=== PATIENT | male | born 1945 | race Asian ===

== ENCOUNTER 2017-06-13 13:35 | Inpatient (IN) | payer BC, MEDICAID ==
[~2017-06-13] VITALS: Ht 172.7 cm; Wt 76.7 kg
[2017-06-13] MEDS ORDERED: Ipratropium 0.02% Inh Soln 2.5ml UD HHN ONE (14:00)
[2017-06-13] MEDS ORDERED: Albuterol ud Inhalation HHN ONE (14:00)
[2017-06-13 14:55] VITALS: BP 114/63
--- NOTE | 2017-06-13 15:14 | Diagnostic Imaging Report ---
Indication: Cough Technique: One view of the chest Comparison: none Findings: There is diffuse opacification of the left hemithorax with airspace and interstitial opacities. There is some interstitial disease of the right lung base as well. There may be a small amount of pleural fluid bilaterally. The heart size is upper limits of normal Impression: Diffuse interstitial and airspace disease in the left lung, may reflect infiltrate or edema. Right basilar interstitial infiltrate versus edema Suspect small bilateral pleural effusions
[2017-06-13] MEDS ORDERED: Oseltamivir 75mg cap ORAL ONE (15:15)
[2017-06-13] MEDS ORDERED: Solu-MEDROL 125mg Inj IVP ONE (15:15)
[2017-06-13] MEDS: Albuterol ud Inhalation HHN SCH ×4 (15:19→19:32)
[2017-06-13] MEDS: Ipratropium 0.02% Inh Soln 2.5ml UD HHN SCH ×3 (15:19→15:46)
[2017-06-13] MEDS ORDERED: cefTRIAXone 1 GM in NS 55 ML IVPB ONE (15:30)
[2017-06-13] MEDS ORDERED: Azithromycin 500 MG in D5W 275 ML IVPB ONE (15:30)
[2017-06-13] MEDS ORDERED: Azithromycin 500mg Inj IV ONE (15:43)
[2017-06-13 15:56] LABS: HEMATOCRIT 34.9 % (42.0-52.0); HEMOGLOBIN 11.2 G/DL (14.2-18.0); MEAN CORPUSCULAR VOLUME 86 FL (80-99); PLATELET COUNT 277 K/UL (150-450); RED BLOOD COUNT 4.08 M/UL (4.70-6.10); RED CELL DISTRIBUTION WIDTH 12.8 % (11.6-14.8)
[2017-06-13 16:13] LABS: WHITE BLOOD COUNT 22.5 K/UL (4.8-10.8)
--- NOTE | 2017-06-13 16:22 | Diagnostic Imaging Report ---
Clinical Indication: Cough, abnormal chest x-ray Technique: Spiral acquisitions obtained through the chest. No IV contrast utilized, reason not stated. Multiplanar reconstructions generated. Total dose length product 761 mGycm. CTDIvol(s) point mGy. Dose reduction achieved using automated exposure control Comparison: Reference made to chest radiograph earlier the same day Findings: There is dense opacification of most of the left lower lobe. Material is seen filling and occluding or nearly occluding the left main stem bronchus and lobar bronchi. A few small cystic spaces are seen within the opacified left lower lobe. There are some calcifications within this. The aerated portions of the left lower lobe surrounded what appear to be a spiculated 3 cm masslike lesion which is immediately adjacent to and anterior to the larger area of consolidation. The residual aerated lower lobe also demonstrates considerable reticular interstitial opacity as well as patchy confluent opacities. The inferior aspect of the left upper lobe demonstrates opacification similar to that seen in the lower lobe the aerated portions of the lower lobe demonstrate reticulated opacities. Areas of confluent opacity are seen throughout much of the main left upper lobe, and an ill-defined spiculated opacity is seen in the left lung apex measuring 2.2 cm in diameter. Extensive unusual calcifications are seen surrounding the distal trachea and the proximal mainstem bronchi bilaterally. Similar calcifications are seen in the adjacent nodes as well as within the opacified parenchyma inferiorly. There are small nodules within the pleural space or extrapleural fat as well, measuring up to 1 cm diameter. There is suggestion of trace pleural fluid at the lung bases, most apparent on the coronal reconstructed images. There are also pleural calcifications at the left lung base On the right, there is mild hyperinflation of the upper and middle lobes, which are otherwise clear extensive reticular opacity is seen within much of the right lower the right lobe. There is considerable right lower lobe volume loss with confluent linear opacities at the lung base. There is fairly massive right hilar lymphadenopathy. The extent of the nodes is difficult to delineate as in the absence of IV contrast and cannot be distinguished from the adjacent vessels. The bronchi are patent on the right. The trachea is patent. No pleural fluid is demonstrated on either side. The aerated portions of the right lung are hyperinflated The main pulmonary artery is dilated, measuring 4.4 cm in diameter. There is mediastinal lymphadenopathy, in addition to the hilar adenopathy. There is also fairly extensive retrocrural adenopathy, with nodes measuring up to 3 cm long axis dimension. Aortopulmonary window and prevascular space nodes measure up to 2 cm in diameter and demonstrate loss of normal architecture. Nodes are also seen within the pericardial fat and adjacent to the distal esophagus. The esophagus is dilated with air proximally and demonstrates wall thickening proximally. The included thyroid is unremarkable. No axillary or chest wall mass or adenopathy. The heart size is normal. There is minimal pericardial thickening but no rachael pericardial effusion. The bones are unremarkable The included upper abdominal anatomy is remarkable for the presence of a right upper pole renal calyceal calculus. The adrenals are unremarkable. Impression: Dense opacification of most of the left lower lobe and much of the left upper lobe. Suspect that this mostly represent neoplasm, although it is also possible that there is central neoplasm and peripheral postobstructive pneumonia and/or atelectasis. Spiculated opacities in the anterior left lower lobe and superior left upper lobe may reflect synchronous neoplastic lesions or could just be lobulated extensions of the primary mass. Material filling the left lung proximal bronchi, likely debris and/or tumor. Given the extensive surrounding calcifications which are probably tumoral calcifications, suspect predominantly the latter Other confluent opacities within the left lung may reflect areas of neoplasm, fibrosis, or acute consolidation. Diffuse interstitial disease within the aerated portions of the left lung and within the right lower lobe probably represent chronic fibrotic changes, but acute interstitial disease is also a possibility. Right hilar, mediastinal, epicardial, and retrocrural lymphadenopathy. Suspect these represent metastatic lymphadenopathy. Small nodules within the left pleural space or extrapleural fat. Suspect likewise represent metastatic lesion Hyperinflated right lung, consistent with COPD Trace left pleural fluid Dilated main pulmonary artery, consistent with pulmonary arterial hypertension Dilated proximal esophagus with mild wall thickening, significance uncertain. Extrinsic compression or invasion by tumor at the level of the stacey a possibility. Correlate with clinical symptoms. Incidental finding of nonobstructive right upper pole renal calyceal calculus The CT scanner at [facility] is accredited by the [employer] and the scans are performed using protocols designed to limit radiation exposure to as low as reasonably achievable to attain images of sufficient resolution adequate for diagnostic evaluation.
[2017-06-13 16:23] LABS: ANION GAP 9 mmol/L (5-15); BLOOD UREA NITROGEN 25 mg/dL (7-18); CALCIUM 8.3 MG/DL (8.5-10.1); CARBON DIOXIDE 26 MMOL/L (21-32); CHLORIDE 89 MMOL/L (98-107); CREATININE 1.4 MG/DL (0.55-1.30); POTASSIUM 3.9 MMOL/L (3.5-5.1); SODIUM 124 MMOL/L (136-145)
[2017-06-13 16:34] LABS: ALANINE AMINOTRANSFERASE 29 U/L (12-78); ALBUMIN 2.3 G/DL (3.4-5.0); ALBUMIN/GLOBULIN RATIO 0.4 (1.0-2.7); ALKALINE PHOSPHATASE 141 U/L (46-116); ASPARTATE AMINO TRANSFERASE 23 U/L (15-37); BILIRUBIN,TOTAL 1.2 MG/DL (0.2-1.0)
[2017-06-13 16:36] LABS: BILIRUBIN,DIRECT 0.7 MG/DL (0.0-0.3)
[2017-06-13 17:08] VITALS: BP 110/67
[2017-06-13] MEDS ORDERED: SYMBICORT2 PUFF1 INH (18:04)
[2017-06-13] MEDS ORDERED: ALBUTEROL2.5 MG/3 M INH (18:24)
[2017-06-13] MEDS ORDERED: LOSARTAN-HCTZ1 EACH ORAL (18:24)
[2017-06-13] MEDS ORDERED: SPIRIVA18 MCG INH (18:24)
--- NOTE | 2017-06-13 18:35 | Emergency Room Report ---
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 Complaining of 34 days of fever chills cough myalgias. Shortness of breath. Patient has nebulizer at home has been using it first 3 times a day. Allergies: Coded Allergies: NO KNOWN DRUG ALLERGIES (Verified Allergy, Unknown, 06/13/17) Pt's confirmed that pt is not allergic to amlodipine Patient History Past Medical History: see triage record Past Surgical History: none Pertinent Family History: none Reviewed Nursing Documentation: PMH: Agreed, PSxH: Agreed Nursing Documentation-PMH Past Medical History: No History, Except For Hx Asthma: Yes Review of Systems All Other Systems: negative except mentioned in HPI Physical Exam Vital Signs Date Time Temp Pulse Resp B/P (MAP) Pulse Ox O2 Delivery O2 Flow Rate FiO2 06/13/17 13:25 112 20 108/72 99 Simple Mask 10.0 06/13/17 14:13 21 06/13/17 14:55 97.6 Sp02 EP Interpretation: reviewed, normal General Appearance: alert, GCS 15, non-toxic, moderate distress Head: normocephalic, atraumatic Eyes: bilateral eye normal inspection, bilateral eye PERRL, bilateral eye EOMI ENT: normal ENT inspection, normal pharynx, normal voice, moist mucus membranes Neck: normal inspection, full range of motion, supple Respiratory: other - dec b/s L lung base, R sided exp wheezing Cardiovascular #1: tachycardia Cardiovascular #2: 2+ radial (R), 2+ radial (L) Gastrointestinal: normal inspection, non tender, soft, non-distended, no guarding Genitourinary: no CVA tenderness Musculoskeletal: normal inspection, back normal, normal range of motion, non- tender Neurologic: normal inspection, alert, oriented x3, responsive, motor strength/ tone normal, sensory intact, normal gait, speech normal Psychiatric: normal inspection, judgement/insight normal, memory normal Skin: normal inspection, normal color, no rash, warm/dry, well hydrated, normal turgor Procedures Critical Care Time Critical Care Time 40 minutes of CC time 71-year-old male, shortness of breath VS: hypoxic, tachypneic, tachycardic PLAN: IV access, labs, lactate, nebulizers, steroids, antibiotics, BiPAP Anticipate admission to [facility] CC time also includes review of labs, review of EMR, discussion with family and paperwork from SNF, d/w hospitalist CC could include dosing of pressors, additional Abx CC time does not include procedures Medical Decision Making Diagnostic Impression: Primary Impression: Respiratory failure Additional Impressions: Lung fibrosis Pneumonia Severe sepsis ER Course 71-year-old male, shortness of breath DDX: Flulike illness, pneumonia, pleural effusion, progressive worsening of chronic left lung disease Plan: Obtain labs, ua, EKG, CXR Antibiotics, fluids, consider BiPAP ER course: Patient was treated with nebulizer, Solu-Medrol, fluids On x-ray likely with bilateral pneumonia, showed white out of the left lung Treated with ceftriaxone and azithromycin Continues to be short of breath, started on BiPAP at 6:30 PM Sepsis Re-examination Time: 8:30 PM VS: Temp 98 HR 100 BP 118/57 RR 19 CVS: RRR Respiratory: Decreased breath sounds left lung Peripheral pulses: 2+ radial Capillary refill: <2 seconds Skin exam: warm, dry, no rash, not mottled Disposition: Patient is to be admitted to [facility]/W hospitalist Dr. Santiago who has accepted pt for admission Please note that this Emergency Department Report was dictated using [employer] mechanic spacecraft technology software, occasionally this can lead to erroneous entry secondary to interpretation by the dictation equipment. EKG Diagnostic Results EP Interpretation: Yes Rate: normal Rhythm: NSR ST Segments: T wave inversions noted in V2 V3. Right bundle branch block ASA given to patient: No Rhythm Strip EP Interpretation: Yes Rate: 100 Rhythm: NSR, no PVCs, no ectopy Chest X-ray CXR: Ordered: Yes 1 view Indication sob EP interpretation: Yes Findings: There is diffuse opacification of the left hemithorax with airspace and interstitial opacities. There is some interstitial disease of the right lung base as well. There may be a small amount of pleural fluid bilaterally. The heart size is upper limits of normal Impression: Diffuse interstitial and airspace disease in the left lung, may reflect infiltrate or edema. Right basilar interstitial infiltrate versus edema Suspect small bilateral pleural effusions Electronically signed by Tracie Paz MD Laboratory Tests Test 06/13/17 15:20 White Blood Count 22.5 K/UL (4.8-10.8) *H Red Blood Count 4.08 M/UL (4.70-6.10) L Hemoglobin 11.2 G/DL (14.2-18.0) L Hematocrit 34.9 % (42.0-52.0) L Mean Corpuscular Volume 86 FL (80-99) Mean Corpuscular Hemoglobin 27.4 PG (27.0-31.0) Mean Corpuscular Hemoglobin Concent 32.0 G/DL (32.0-36.0) Red Cell Distribution Width 12.8 % (11.6-14.8) Platelet Count 277 K/UL (150-450) Mean Platelet Volume 6.0 FL (6.5-10.1) L Neutrophils (%) (Auto) % (45.0-75.0) Lymphocytes (%) (Auto) % (20.0-45.0) Monocytes (%) (Auto) % (1.0-10.0) Eosinophils (%) (Auto) % (0.0-3.0) Basophils (%) (Auto) % (0.0-2.0) Differential Total Cells Counted 100 Neutrophils % (Manual) 87 % (45-75) H Lymphocytes % (Manual) 6 % (20-45) L Monocytes % (Manual) 3 % (1-10) Eosinophils % (Manual) 0 % (0-3) Basophils % (Manual) 0 % (0-2) Band Neutrophils 4 % (0-8) Platelet Estimate Adequate Platelet Morphology Normal Red Blood Cell Morphology Normal Sodium Level 124 MMOL/L (136-145) L Potassium Level 3.9 MMOL/L (3.5-5.1) Chloride Level 89 MMOL/L (98-107) L Carbon Dioxide Level 26 MMOL/L (21-32) Anion Gap 9 mmol/L (5-15) Blood Urea Nitrogen 25 mg/dL (7-18) H Creatinine 1.4 MG/DL (0.55-1.30) H Estimate Glomerular Filtration Rate mL/min (>60) Glucose Level 221 MG/DL (74-106) H Calcium Level 8.3 MG/DL (8.5-10.1) L Total Bilirubin 1.2 MG/DL (0.2-1.0) H Direct Bilirubin 0.7 MG/DL (0.0-0.3) H Aspartate Amino Transferase (AST) 23 U/L (15-37) Alanine Aminotransferase (ALT) 29 U/L (12-78) Alkaline Phosphatase 141 U/L (46-116) H Troponin I 0.005 ng/mL (0.000-0.056) Pro-B-Type Natriuretic Peptide 939 pg/mL (0-125) H Total Protein 8.5 G/DL (6.4-8.2) H Albumin 2.3 G/DL (3.4-5.0) L Globulin 6.2 g/dL Albumin/Globulin Ratio 0.4 (1.0-2.7) L Microbiology Date/Time Source Procedure Growth Status 06/13/17 14:45 Nasal Nares Influenza Types A,B Antigen (KELLY) - Final Complete CT/MRI/US Diagnostic Results CT/MRI/US Diagnostic Results : Imaging Test Ordered: CT Chest Impression Findings: There is dense opacification of most of the left lower lobe. Material is seen filling and occluding or nearly occluding the left main stem bronchus and lobar bronchi. A few small cystic spaces are seen within the opacified left lower lobe. There are some calcifications within this. The aerated portions of the left lower lobe surrounded what appear to be a spiculated 3 cm masslike lesion which is immediately adjacent to and anterior to the larger area of consolidation. The residual aerated lower lobe also demonstrates considerable reticular interstitial opacity as well as patchy confluent opacities. The inferior aspect of the left upper lobe demonstrates opacification similar to that seen in the lower lobe the aerated portions of the lower lobe demonstrate reticulated opacities. Areas of confluent opacity are seen throughout much of the main left upper lobe, and an ill-defined spiculated opacity is seen in the left lung apex measuring 2.2 cm in diameter. Extensive unusual calcifications are seen surrounding the distal trachea and the proximal mainstem bronchi bilaterally. Similar calcifications are seen in the adjacent nodes as well as within the opacified parenchyma inferiorly. There are small nodules within the pleural space or extrapleural fat as well, measuring up to 1 cm diameter. There is suggestion of trace pleural fluid at the lung bases, most apparent on the coronal reconstructed images. There are also pleural calcifications at the left lung base On the right, there is mild hyperinflation of the upper and middle lobes, which are otherwise clear extensive reticular opacity is seen within much of the right lower the right lobe. There is considerable right lower lobe volume loss with confluent linear opacities at the lung base. There is fairly massive right hilar lymphadenopathy. The extent of the nodes is difficult to delineate as in the absence of IV contrast and cannot be distinguished from the adjacent vessels. The bronchi are patent on the right. The trachea is patent. No pleural fluid is demonstrated on either side. The aerated portions of the right lung are hyperinflated The main pulmonary artery is dilated, measuring 4.4 cm in diameter. There is mediastinal lymphadenopathy, in addition to the hilar adenopathy. There is also fairly extensive retrocrural adenopathy, with nodes measuring up to 3 cm long axis dimension. Aortopulmonary window and prevascular space nodes measure up to 2 cm in diameter and demonstrate loss of normal architecture. Nodes are also seen within the pericardial fat and adjacent to the distal esophagus. The esophagus is dilated with air proximally and demonstrates wall thickening proximally. The included thyroid is unremarkable. No axillary or chest wall mass or adenopathy. The heart size is normal. There is minimal pericardial thickening but no rachael pericardial effusion. The bones are unremarkable The included upper abdominal anatomy is remarkable for the presence of a right upper pole renal calyceal calculus. The adrenals are unremarkable. Impression: Dense opacification of most of the left lower lobe and much of the left upper lobe. Suspect that this mostly represent neoplasm, although it is also possible that there is central neoplasm and peripheral postobstructive pneumonia and/or atelectasis. Spiculated opacities in the anterior left lower lobe and superior left upper lobe may reflect synchronous neoplastic lesions or could just be lobulated extensions of the primary mass. Material filling the left lung proximal bronchi, likely debris and/or tumor. Given the extensive surrounding calcifications which are probably tumoral calcifications, suspect predominantly the latter Other confluent opacities within the left lung may reflect areas of neoplasm, fibrosis, or acute consolidation. Diffuse interstitial disease within the aerated portions of the left lung and within the right lower lobe probably represent chronic fibrotic changes, but acute interstitial disease is also a possibility. Right hilar, mediastinal, epicardial, and retrocrural lymphadenopathy. Suspect these represent metastatic lymphadenopathy. Small nodules within the left pleural space or extrapleural fat. Suspect likewise represent metastatic lesion Hyperinflated right lung, consistent with COPD Trace left pleural fluid Dilated main pulmonary artery, consistent with pulmonary arterial hypertension Dilated proximal esophagus with mild wall thickening, significance uncertain. Extrinsic compression or invasion by tumor at the level of the stacey a possibility. Correlate with clinical symptoms. Incidental finding of nonobstructive right upper pole renal calyceal calculus Last Vital Signs Date Time Temp Pulse Resp B/P (MAP) Pulse Ox O2 Delivery O2 Flow Rate FiO2 06/13/17 17:08 97.6 103 24 110/67 99 Nasal Cannula 4.0 06/13/17 15:49 28 Disposition: ADMITTED INPATIENT Condition: Critical Referrals: NON PHYSICIAN (PCP) Tracie Paz M.D. Jun 13, 2017 18:35
[2017-06-13 18:45] VITALS: BP 110/67
--- NOTE | 2017-06-13 19:03 | Consultation ---
Consult Note Assessment/Plan dict resp failure pulm fibrosis w fibrothorax HTN heart dis thanks TRISTIN OSBORN Jun 13, 2017 19:03
[2017-06-13 19:30] VITALS: BP 120/59
[2017-06-13 20:11] LABS: APPEARANCE,URINE CLEAR; BILIRUBIN, URINE NEGATIVE (NEGATIVE); COLOR,URINE YELLOW; GLUCOSE, URINE (UA) 3+ (NEGATIVE); KETONES,URINE NEGATIVE (NEGATIVE); LEUKOCYTE ESTERASE ,URINE NEGATIVE (NEGATIVE); NITRITE,URINE NEGATIVE (NEGATIVE); PH,URINE 5 (4.5-8.0); PROTEIN,URINE 1+ (NEGATIVE); UROBILINOGEN,URINE 1 MG/DL (0.0-1.0)
[2017-06-13 21:40] VITALS: BP 113/60
[2017-06-13] MEDS: NovoLOG Insulin Flexpen SUBQ SCH (23:13)
[2017-06-13] MEDS: Solu-MEDROL 40mg Inj IVP SCH (23:13)
[2017-06-14] MEDS: Albuterol/Ipratropium 3ml neb HHN SCH ×7 (00:10→23:41)
--- NOTE | 2017-06-14 02:45 | Consultation ---
DATE OF CONSULTATION: 06/13/2016 PULMONARY CONSULTATION CHIEF COMPLAINT: Short of breath. HISTORY OF PRESENT ILLNESS: This is a 71-year-old man, who has about one week of shortness of breath and low-grade fever. He has been using his inhalers and not improving. He went to urgent care today and was given Solu-Medrol and oxygen and was transported to the emergency department of the emergency medical services. The patient is in respiratory distress and can provide little additional history. In addition, there is a language barrier. The is at the bedside, but also speaks little Divehi. Records from [facility] reviewed. PAST MEDICAL HISTORY: The patient has an extensive pulmonary history with tuberculosis, bronchiectasis, and fibrosis. He has been treated in the past for tuberculosis and has difficulty with stenosis of the left main bronchus. He has had numerous bronchoscopies and stent placements and has chronic lung disease as a result. He has essential tremor, hypertension, mediastinal fibrosis, past left thoracotomy, hypertension I think as diastolic dysfunction, left ventricular hypertrophy, positive LUIS, diabetes, and right bundle branch block. PAST SURGICAL HISTORY: Includes esophageal dilatation, appendectomy, multiple bronchoscopies with stent placement, and past thoracotomy. MEDICATIONS: Robitussin, Spiriva, Symbicort, Tessalon, Proventil by nebulizer, Flonase, vitamin D, losartan, hydrochlorothiazide, and cyclosporine eye drops. ALLERGIES: Amlodipine. REVIEW OF SYSTEMS: Cannot be obtained. PHYSICAL EXAMINATION: VITAL SIGNS: Show he is tachycardic between 103 and 130, blood pressure is normal, temperature is normal, respirations 24 on BiPAP, and saturation is 99% on supplemental oxygen. The patient is in some respiratory distress. SKIN: Warm and dry. HEENT: The head is normocephalic. NECK: No jugular venous distention. The trachea is deviated to the left. CHEST: Scattered rhonchi. CARDIAC: Rhythm is regular. Tachycardia. ABDOMEN: Soft and nontender. EXTREMITIES: There is clubbing. There is no cyanosis or edema. LABORATORY AND DIAGNOSTIC DATA: Chest x-ray and CT scan of the chest are reviewed. There is extensive fibrosis to the left chest and fibrothorax. IMPRESSION: 1. Acute respiratory failure. Blood gas is pending. 2. Possible pneumonia. 3. 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 4. Hypertension with hypertensive heart disease. PLAN: The patient will be admitted and continued on BiPAP. We will give respiratory treatments, steroids, and antibiotics. José Luis Payton M.D. DR: Jaskaran JOB#: [id number] CC: Wyatt Santiago M.D.; Fax#: [phone]
[2017-06-14 04:00] VITALS: BP 117/60
[2017-06-14] MEDS: NovoLOG Insulin Flexpen SUBQ SCH ×4 (05:51→20:58)
[2017-06-14] MEDS: Solu-MEDROL 40mg Inj IVP SCH ×3 (05:52→22:05)
[2017-06-14 08:00] VITALS: BP 116/65
[2017-06-14 12:00] VITALS: BP 113/67
--- NOTE | 2017-06-14 14:31 | Pulmonology Progress Note ---
Assessment/Plan Assessment/Plan IMPRESSION: 1. Acute respiratory failure. ABG better 2. Possible pneumonia. 3. 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 4. Hypertension with hypertensive heart disease. PLAN: The patient will be continued on BiPAP. continue respiratory treatments, steroids, and antibiotics. Subjective Interval Events: patient seen. Discussed with RN. Is off BIPAP today Constitutional: Reports: no symptoms HEENT: Repors: no symptoms Respiratory: Reports: no symptoms Cardiovascular: Reports: no symptoms Gastrointestinal/Abdominal: Reports: no symptoms Genitourinary: Reports: no symptoms Allergies: Coded Allergies: LACTOSE (Verified Allergy, Mild, 06/14/17) AMLODIPINE (Verified Allergy, Unknown, 06/14/17) Objective Last 24 Hour Vital Signs Date Time Temp Pulse Resp B/P (MAP) Pulse Ox O2 Delivery O2 Flow Rate FiO2 06/14/17 12:47 36 06/14/17 12:47 94 20 99 Nasal Cannula 4.0 36 06/14/17 12:37 85 21 96 Nasal Cannula 4.0 36 06/14/17 12:00 97.0 90 20 113/67 98 Nasal Cannula 4.0 06/14/17 08:00 97.5 89 18 116/65 99 Nasal Cannula 4.0 06/14/17 07:49 95 22 99 Nasal Cannula 4.0 36 06/14/17 07:49 36 06/14/17 07:48 92 06/14/17 07:43 86 21 99 Nasal Cannula 4.0 36 06/14/17 07:43 86 21 Nasal Cannula 4.0 36 06/14/17 04:00 97.5 90 20 117/60 98 Bi-pap 06/14/17 01:59 4.0 06/14/17 00:00 94 06/13/17 22:29 97.6 95 22 113/60 99 Bi-pap 4.0 28 06/13/17 21:40 95 22 113/60 99 Bi-pap 06/13/17 21:20 100 22 99 Facial 40 06/13/17 19:30 110 24 120/59 99 Bi-pap 06/13/17 18:45 104 22 110/67 96 Bi-pap 06/13/17 18:30 92 22 98 Bi-pap 40 06/13/17 18:30 88 21 Bi-pap 40 06/13/17 18:30 40 06/13/17 18:30 88 25 99 Facial 40 06/13/17 18:30 88 21 98 Bi-pap 40 06/13/17 17:08 97.6 103 24 110/67 99 Nasal Cannula 4.0 06/13/17 16:02 110 25 98 Nasal Cannula 2.0 06/13/17 15:49 28 06/13/17 15:48 104 21 98 Nasal Cannula 2.0 06/13/17 15:47 104 21 98 Room Air 21 06/13/17 15:35 21 06/13/17 15:34 130 23 99 Nasal Cannula 2.0 06/13/17 15:34 103 23 99 Room Air 21 06/13/17 15:23 21 06/13/17 15:19 106 18 96 Nasal Cannula 2.0 06/13/17 14:55 97.6 108 22 114/63 99 Room Air 10.0 21 General Appearance: no acute distress HEENT: normocephalic Respiratory/Chest: chest wall non-tender, lungs clear Cardiovascular: normal peripheral pulses, normal rate Microbiology Date/Time Source Procedure Growth Status 06/13/17 14:45 Nasal Nares Influenza Types A,B Antigen (KELLY) - Final Complete Laboratory Tests 06/13/17 15:20: White Blood Count 22.5*H, Red Blood Count 4.08L, Hemoglobin 11.2L, Hematocrit 34.9L, Mean Corpuscular Volume 86, Mean Corpuscular Hemoglobin 27.4, Mean Corpuscular Hemoglobin Concent 32.0, Red Cell Distribution Width 12.8, Platelet Count 277, Mean Platelet Volume 6.0L, Neutrophils (%) (Auto) , Lymphocytes (%) ( Auto) , Monocytes (%) (Auto) , Eosinophils (%) (Auto) , Basophils (%) (Auto) , Differential Total Cells Counted 100, Neutrophils % (Manual) 87H, Lymphocytes % (Manual) 6L, Monocytes % (Manual) 3, Eosinophils % (Manual) 0, Basophils % ( Manual) 0, Band Neutrophils 4, Platelet Estimate Adequate, Platelet Morphology Normal, Red Blood Cell Morphology Normal, Sodium Level 124L, Potassium Level 3.9 , Chloride Level 89L, Carbon Dioxide Level 26, Anion Gap 9, Blood Urea Nitrogen 25H, Creatinine 1.4H, Estimat Glomerular Filtration Rate , Glucose Level 221H, Calcium Level 8.3L, Total Bilirubin 1.2H, Direct Bilirubin 0.7H, Aspartate Amino Transf (AST/SGOT) 23, Alanine Aminotransferase (ALT/SGPT) 29, Alkaline Phosphatase 141H, Troponin I 0.005, Pro-B-Type Natriuretic Peptide 939H, Total Protein 8.5H, Albumin 2.3L, Globulin 6.2, Albumin/Globulin Ratio 0.4L 06/13/17 18:35: Arterial Blood pH 7.456H, Arterial Blood Partial Pressure CO2 35.7, Arterial Blood Partial Pressure O2 204.1H, Arterial Blood HCO3 24.6, Arterial Blood Oxygen Saturation 99.1H, Arterial Blood Base Excess 1.0, Dmitriy Test Positive 06/13/17 19:35: Urine Color Yellow, Urine Appearance Clear, Urine pH 5, Urine Specific [place] 1.015, Urine Protein 1+H, Urine Glucose (UA) 3+H, Urine Ketones Negative, Urine Occult Blood 2+H, Urine Nitrite Negative, Urine Bilirubin Negative, Urine Urobilinogen 1H, Urine Leukocyte Esterase Negative, Urine RBC 0-2H, Urine WBC 0- 2, Urine Squamous Epithelial Cells None, Urine Bacteria Few, Lactic Acid Level 4.80H Current Medications Medications (Trade) Dose Ordered Sig/Octavia Route PRN Reason Start Time Stop Time Status Last Admin Dose Admin Albuterol/ Ipratropium (Albuterol/ Ipratropium) 3 ml Q4HRT HHN 06/13/17 23:00 06/18/17 22:59 06/14/17 12:37 Dextrose (Dextrose 50%) STAT PRN IV Hypoglycemia 06/13/17 19:15 07/13/17 19:14 Insulin Aspart (NovoLOG) BEFORE MEALS AND HS SUBQ 06/13/17 21:00 07/13/17 20:59 06/14/17 12:42 Methylprednisolone Sodium Succinate (Solu-MEDROL) 40 mg EVERY 8 HOURS IVP 06/13/17 22:00 07/13/17 21:59 06/14/17 14:14 Nicolás Loza MD Jun 14, 2017 14:31
[2017-06-14 16:00] VITALS: BP 112/65
--- NOTE | 2017-06-14 17:30 | History and Physical Report ---
DATE OF ADMISSION: 06/13/2017 CHIEF COMPLAINT AND REASON FOR HOSPITALIZATION: The patient admitted with cough, weakness, and wheezing. HISTORY OF PRESENT ILLNESS: The patient is a 71-year-old man with a long history of lung disease and prior hospitalizations at [facility]. He has had tuberculosis more than 30 years ago, bronchiectasis, pulmonary fibrosis. He has had stenosis of the left mainstem bronchus and multiple bronchoscopies and stent placements. The patient presents with increasing cough and shortness of breath. No fever. He has been using a nebulizer at home. PAST MEDICAL HISTORY: The patient has prior medical problems including hypertension, mediastinal fibrosis, diastolic dysfunction, left ventricular hypertrophy, positive LUIS, diabetes, right bundle-branch block, history of esophageal dilation. PAST SURGICAL HISTORY: Include appendectomy, esophageal dilation, bronchoscopies , prior thoracotomy. MEDICATIONS: Prior to admission medications include albuterol inhalation, Symbicort, losartan HCT, Spiriva, Robitussin, Tessalon, Proventil inhaler, Flonase, vitamin D, cyclosporine eye drops. ALLERGIES: AMLODIPINE. SYSTEM REVIEW: HEAD EYES, EARS, NOSE, AND THROAT: Vision and hearing good. ENDOCRINE: History of diabetes. No known thyroid disease. PULMONARY: See history of present illness. CARDIAC: No angina or LA. See history of present illness. GASTROINTESTINAL: No ulcers or GI bleeding. No recent nausea, vomiting, or diarrhea. GENITOURINARY: No dysuria, hematuria, urinary hesitancy. NEUROLOGIC: No CVA, syncope, or seizures. MUSCULOSKELETAL: No history of deforming arthritis. PHYSICAL EXAMINATION: GENERAL: The patient is lying in bed, looking acutely ill but not severe distress. VITAL SIGNS: Temperature is 97 degrees, pulse 90, respirations 20, and blood pressure 113/67, pulse oximetry is 98% on four liters. HEAD EYES, EARS, NOSE: Sclerae are nonicteric. Ocular motions intact in all directions. Oral mucosa moist. NECK: No adenopathy. LUNGS: Bilateral rhonchi and wheezing. He has a harsh cough. HEART: Rhythm is regular. I hear no murmur. ABDOMEN: Soft without organomegaly or masses. EXTREMITIES: No edema, cyanosis, or clubbing. NEUROLOGIC: He is alert and oriented. Cranial nerves are intact. PERTINENT LABORATORY AND DIAGNOSTIC DATA: Initial influenza test is negative. Chest x-ray, and imaging are reviewed and are on the chart show extensive fibrotic and chronic disease. He does have sodium of 124, glucose of 221. White count is 22.5 and hemoglobin 11.2. Urinalysis shows 0 to 2 white cells, 0 to 2 red cells, 1+ protein, 3+ glucose, specific gravity 1.015. IMPRESSION: 1. The patient has pulmonary fibrosis and exacerbation of severe pulmonary disease. He will be treated with bronchodilators and empiric antibiotics for possible pulmonary infection that he is a high-risk patient. The patient also has been started on steroids which may exacerbate his diabetes. 2. Hyponatremia likely due to thiazide diuretic which will be discontinued. 3. Hypertension. 4. Diabetes. 5. History of remote treatment for tuberculosis. PLAN: 1. As above. 2. Watch closely. 3. He will be followed by pulmonary physicians. Wyatt Santiago M.D. DR: Arun JOB#: [id number] CC:
[2017-06-14 20:00] VITALS: BP 128/65
[2017-06-14] MEDS ORDERED: Levemir Flexpen SUBQ SCH (21:00)
[2017-06-15] VITALS: BP 114/70
[2017-06-15] MEDS: Albuterol/Ipratropium 3ml neb HHN SCH ×6 (03:41→23:06)
[2017-06-15 04:00] VITALS: BP 119/72
[2017-06-15] MEDS: Solu-MEDROL 40mg Inj IVP SCH ×3 (06:07→21:58)
[2017-06-15] MEDS: NovoLOG Insulin Flexpen SUBQ SCH ×4 (06:26→21:59)
[2017-06-15 08:00] VITALS: BP 118/79
[2017-06-15 10:46] LABS: HEMATOCRIT 35.4 % (42.0-52.0); HEMOGLOBIN 11.1 G/DL (14.2-18.0); MEAN CORPUSCULAR VOLUME 86 FL (80-99); PLATELET COUNT 387 K/UL (150-450); RED CELL DISTRIBUTION WIDTH 13.7 % (11.6-14.8); WHITE BLOOD COUNT 20.9 K/UL (4.8-10.8)
[2017-06-15 11:19] LABS: ANION GAP 8 mmol/L (5-15); BLOOD UREA NITROGEN 30 mg/dL (7-18); CALCIUM 8.4 MG/DL (8.5-10.1); CARBON DIOXIDE 27 MMOL/L (21-32); CHLORIDE 96 MMOL/L (98-107); CREATININE 1.2 MG/DL (0.55-1.30); POTASSIUM 4.2 MMOL/L (3.5-5.1); SODIUM 131 MMOL/L (136-145)
[2017-06-15 12:00] VITALS: BP 126/68
--- NOTE | 2017-06-15 15:47 | General Progress Note ---
Assessment/Plan Problem List: (1) aodm (2) Respiratory failure ICD Codes: J96.90 - Respiratory failure, unspecified, unspecified whether with hypoxia or hypercapnia SNOMED: 898129375 (3) Pneumonia ICD Codes: J18.9 - Pneumonia, unspecified organism SNOMED: 417658251 (4) Lung fibrosis ICD Codes: J84.10 - Pulmonary fibrosis, unspecified SNOMED: 32986794 Assessment/Plan continue hhn steroid , empiric atb, increase insulin Subjective Constitutional: Reports: weakness HEENT: Reports: no symptoms Cardiovascular: Reports: no symptoms Respiratory: Reports: cough Gastrointestinal/Abdominal: Reports: no symptoms Genitourinary: Reports: no symptoms Endocrine: Reports: no symptoms Hematologic/Lymphatic: Reports: no symptoms Allergies: Coded Allergies: LACTOSE (Verified Allergy, Mild, 06/14/17) AMLODIPINE (Verified Allergy, Unknown, 06/14/17) Objective Last 24 Hour Vital Signs Date Time Temp Pulse Resp B/P (MAP) Pulse Ox O2 Delivery O2 Flow Rate FiO2 06/15/17 13:39 97 06/15/17 12:00 97.7 93 20 126/68 94 Room Air 06/15/17 10:37 89 21 96 Nasal Cannula 2.0 28 06/15/17 10:37 28 06/15/17 10:31 92 21 96 Nasal Cannula 2.0 28 06/15/17 08:55 92 06/15/17 08:00 97.9 98 20 118/79 97 Nasal Cannula 2.0 06/15/17 07:18 28 06/15/17 07:18 91 21 96 Nasal Cannula 2.0 28 06/15/17 07:12 90 21 96 Nasal Cannula 2.0 28 06/15/17 04:00 98.8 98 24 119/72 100 Nasal Cannula 4.0 06/15/17 04:00 100 06/15/17 03:51 89 20 100 Nasal Cannula 4.0 36 06/15/17 03:42 36 06/15/17 03:41 101 21 95 Nasal Cannula 2.0 28 06/15/17 00:00 97.5 98 32 114/70 99 Nasal Cannula 2.0 06/15/17 00:00 93 06/14/17 23:52 85 20 100 Nasal Cannula 4.0 36 06/14/17 23:42 36 06/14/17 23:41 94 21 98 Nasal Cannula 2.0 28 06/14/17 20:33 93 20 100 Nasal Cannula 4.0 36 06/14/17 20:00 97 06/14/17 20:00 98.4 100 24 128/65 98 Nasal Cannula 4.0 06/14/17 19:43 36 06/14/17 19:43 95 21 98 Nasal Cannula 2.0 28 06/14/17 16:30 92 06/14/17 16:18 89 20 98 Nasal Cannula 4.0 36 06/14/17 16:18 36 06/14/17 16:10 86 21 98 Nasal Cannula 4.0 36 06/14/17 16:00 97.5 88 24 112/65 97 Nasal Cannula 4.0 Intake and Output 06/14/17 06/15/17 19:00 07:00 Intake Total 360 ml Output Total 1000 ml 600 ml Balance -640 ml -600 ml Intake Oral 360 ml Output Urine Total 1000 ml 600 ml # Voids 2 # Bowel Movements 2 Laboratory Tests 06/15/17 07:00: Arterial Blood pH 7.400, Arterial Blood Partial Pressure CO2 47.7H, Arterial Blood Partial Pressure O2 103.1H, Arterial Blood HCO3 29.4H, Arterial Blood Oxygen Saturation 97.4, Arterial Blood Base Excess 4.0, Dmitriy Test Positive 06/15/17 10:00: White Blood Count 20.9H, Red Blood Count 4.10L, Hemoglobin 11.1L, Hematocrit 35.4L, Mean Corpuscular Volume 86, Mean Corpuscular Hemoglobin 27.1, Mean Corpuscular Hemoglobin Concent 31.4L, Red Cell Distribution Width 13.7, Platelet Count 387, Mean Platelet Volume 6.5, Neutrophils (%) (Auto) , Lymphocytes (%) (Auto) , Monocytes (%) (Auto) , Eosinophils (%) (Auto) , Basophils (%) (Auto) , Differential Total Cells Counted 100, Neutrophils % ( Manual) 92H, Lymphocytes % (Manual) 5L, Monocytes % (Manual) 3, Eosinophils % ( Manual) 0, Basophils % (Manual) 0, Band Neutrophils 0, Platelet Estimate Adequate, Platelet Morphology Normal, Hypochromasia 1+, Anisocytosis 1+, Sodium Level 131L, Potassium Level 4.2, Chloride Level 96L, Carbon Dioxide Level 27, Anion Gap 8, Blood Urea Nitrogen 30H, Creatinine 1.2, Estimat Glomerular Filtration Rate , Glucose Level 258H, Calcium Level 8.4L, Pro-B-Type Natriuretic Peptide 343H, Thyroid Stimulating Hormone (TSH) 0.189L, Free Thyroxine 1.52H Height (Feet): 5 Height (Inches): 8.00 Weight (Pounds): 169 General Appearance: alert, mild distress EENT: normal ENT inspection Neck: normal alignment Cardiovascular: normal rate, regular rhythm Respiratory/Chest: rhonchi - bilaterally Extremities: non-tender Edema: no edema noted Arm (L), no edema noted Arm (R), no edema noted Leg (L), no edema noted Leg (R), no edema noted Pedal (L), no edema noted Pedal (R), no edema noted 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
[2017-06-15 16:00] VITALS: BP_SYST 113; BP_SYST 155; BP_DIAS 100; BP_DIAS 63
[2017-06-15 20:00] VITALS: BP 133/78
[2017-06-15] MEDS: Levemir Flexpen SUBQ SCH (22:00)
[2017-06-16] VITALS (7 sets, daily range): BP systolic 128–150; BP diastolic 74–78
[2017-06-16] MEDS: Albuterol/Ipratropium 3ml neb HHN SCH ×6 (03:20→23:56)
[2017-06-16] MEDS: Solu-MEDROL 40mg Inj IVP SCH ×3 (06:18→22:13)
[2017-06-16] MEDS: NovoLOG Insulin Flexpen SUBQ SCH ×4 (06:19→21:34)
--- NOTE | 2017-06-16 11:12 | General Progress Note ---
Assessment/Plan Problem List: (1) aodm (2) Respiratory failure ICD Codes: J96.90 - Respiratory failure, unspecified, unspecified whether with hypoxia or hypercapnia SNOMED: 154103385 (3) Pneumonia ICD Codes: J18.9 - Pneumonia, unspecified organism SNOMED: 183697677 (4) Lung fibrosis ICD Codes: J84.10 - Pulmonary fibrosis, unspecified SNOMED: 11190829 Assessment/Plan continue hhn steroid , empiric atb, increase insulin,glu nbetter, still rest dyspnea Subjective Constitutional: Reports: weakness HEENT: Reports: no symptoms Cardiovascular: Reports: no symptoms Respiratory: Reports: cough, SOB at rest Gastrointestinal/Abdominal: Reports: no symptoms Genitourinary: Reports: no symptoms Endocrine: Reports: no symptoms Allergies: Coded Allergies: LACTOSE (Verified Allergy, Mild, 06/14/17) AMLODIPINE (Verified Allergy, Unknown, 06/14/17) Objective Last 24 Hour Vital Signs Date Time Temp Pulse Resp B/P (MAP) Pulse Ox O2 Delivery O2 Flow Rate FiO2 06/16/17 10:58 21 06/16/17 10:58 79 21 94 Room Air 21 06/16/17 10:51 83 20 94 Room Air 21 06/16/17 08:25 28 06/16/17 08:25 89 21 97 Nasal Cannula 2.0 28 06/16/17 08:19 93 20 95 Nasal Cannula 2.0 28 06/16/17 08:00 91 06/16/17 08:00 97.7 97 22 147/77 97 Nasal Cannula 2.0 97 06/16/17 04:00 97.6 82 26 144/74 96 Nasal Cannula 2.0 06/16/17 03:35 81 06/16/17 03:30 109 20 98 Nasal Cannula 2.0 28 06/16/17 03:19 83 20 98 Nasal Cannula 2.0 28 06/16/17 03:19 28 06/16/17 00:00 97.3 90 26 128/75 98 Nasal Cannula 2.0 06/15/17 23:33 88 06/15/17 23:13 88 22 98 Nasal Cannula 2.0 28 06/15/17 23:04 90 22 97 Nasal Cannula 2.0 28 06/15/17 20:00 97.3 90 20 133/78 98 Nasal Cannula 2.0 06/15/17 19:30 100 1/6/18 19:19 89 16 98 Room Air 21 06/15/17 19:11 21 06/15/17 19:11 95 16 95 Room Air 21 06/15/17 16:31 Room Air 21 06/15/17 16:31 Room Air 21 06/15/17 16:00 88 06/15/17 16:00 97.3 71 20 155/100 94 Room Air 06/15/17 13:39 97 06/15/17 12:00 97.7 93 20 126/68 94 Room Air Intake and Output 06/15/17 06/16/17 19:00 07:00 Intake Total 480 ml 200 ml Balance 480 ml 200 ml Intake Oral 480 ml 200 ml # Voids 3 3 Height (Feet): 5 Height (Inches): 8.00 Weight (Pounds): 169 General Appearance: alert, mild distress EENT: normal ENT inspection Neck: normal alignment, supple Cardiovascular: regular rhythm Respiratory/Chest: rhonchi - bilaterally, expiratory wheezing Abdomen: non tender, no organomegaly Edema: no edema noted Arm (L), no edema noted Arm (R), no edema noted Leg (L), no edema noted Leg (R), no edema noted Pedal (L), no edema noted Pedal (R), no edema noted 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
[2017-06-16] MEDS: Levemir Flexpen SUBQ SCH (21:35)
[2017-06-17] VITALS: BP 147/80
[2017-06-17] MEDS: Albuterol/Ipratropium 3ml neb HHN SCH ×6 (03:00→23:42)
[2017-06-17 04:00] VITALS: BP 136/70
[2017-06-17] MEDS: NovoLOG Insulin Flexpen SUBQ SCH ×4 (06:30→21:00)
[2017-06-17] MEDS: Solu-MEDROL 40mg Inj IVP SCH (06:44)
[2017-06-17 08:00] VITALS: BP 144/81
--- NOTE | 2017-06-17 08:53 | General Progress Note ---
Assessment/Plan Problem List: (1) aodm (2) Respiratory failure ICD Codes: J96.90 - Respiratory failure, unspecified, unspecified whether with hypoxia or hypercapnia SNOMED: 548506869 (3) Pneumonia ICD Codes: J18.9 - Pneumonia, unspecified organism SNOMED: 816628444 (4) Lung fibrosis ICD Codes: J84.10 - Pulmonary fibrosis, unspecified SNOMED: 24040719 Assessment/Plan continue hhn steroid , empiric atb, increase insulin,glu nbetter, still rest dyspnea, needs dm teaching Subjective Constitutional: Reports: weakness HEENT: Reports: no symptoms Cardiovascular: Reports: no symptoms Respiratory: Reports: cough, SOB at rest Gastrointestinal/Abdominal: Reports: no symptoms Genitourinary: Reports: no symptoms Neurologic/Psychiatric: Reports: no symptoms Endocrine: Reports: no symptoms Allergies: Coded Allergies: LACTOSE (Verified Allergy, Mild, 06/14/17) AMLODIPINE (Verified Allergy, Unknown, 06/14/17) Objective Last 24 Hour Vital Signs Date Time Temp Pulse Resp B/P (MAP) Pulse Ox O2 Delivery O2 Flow Rate FiO2 06/17/17 07:53 72 18 99 Room Air 21 06/17/17 07:50 21 06/17/17 07:50 72 20 95 Room Air 21 06/17/17 06:00 66 06/17/17 04:00 97.2 66 20 136/70 96 Room Air 66 06/17/17 03:27 Room Air 21 06/17/17 03:27 Room Air 21 06/17/17 00:00 97.0 76 20 147/80 95 Room Air 86 06/16/17 23:29 79 18 96 Room Air 21 06/16/17 23:14 87 20 94 Room Air 21 06/16/17 23:14 21 06/16/17 20:03 75 06/16/17 20:00 97.9 88 22 141/78 95 Room Air 86 06/16/17 18:10 21 06/16/17 18:10 81 21 97 Room Air 21 06/16/17 18:04 90 22 95 Room Air 21 06/16/17 16:00 84 06/16/17 16:00 97.9 86 21 150/78 95 Room Air 86 06/16/17 14:59 97.9 79 21 141/74 94 Room Air 79 06/16/17 14:51 83 22 98 Room Air 21 06/16/17 14:42 21 06/16/17 14:41 87 22 95 Room Air 21 06/16/17 12:00 97.9 79 21 141/74 94 Room Air 79 06/16/17 12:00 79 06/16/17 10:58 21 06/16/17 10:58 79 21 94 Room Air 21 06/16/17 10:51 83 20 94 Room Air 21 Intake and Output 06/16/17 06/17/17 19:00 07:00 Intake Total 240 ml 100 ml Balance 240 ml 100 ml Intake Oral 100 ml Other 240 ml # Voids 2 1 Height (Feet): 5 Height (Inches): 8.00 Weight (Pounds): 169 General Appearance: alert, mild distress EENT: normal ENT inspection Neck: normal alignment Cardiovascular: regular rhythm Respiratory/Chest: expiratory wheezing Abdomen: non tender, soft Edema: no edema noted Arm (L), no edema noted Arm (R), no edema noted Leg (L), no edema noted Leg (R), no edema noted Pedal (L), no edema noted Pedal (R), no edema noted 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
--- NOTE | 2017-06-17 09:57 | Pulmonology Progress Note ---
Assessment/Plan Assessment/Plan IMPRESSION: 1. Acute respiratory failure. ABG better 2. Possible pneumonia. Sputum CS has gram neg bacilli 3. 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 4. Hypertension with hypertensive heart disease. PLAN: DC BiPAP. continue respiratory treatments, steroids, add antibiotics. Will decrease steroids/change to PO Subjective Interval Events: Better; off BiPAP Constitutional: Reports: no symptoms HEENT: Repors: no symptoms Respiratory: Reports: no symptoms Cardiovascular: Reports: no symptoms Gastrointestinal/Abdominal: Reports: no symptoms Genitourinary: Reports: no symptoms Allergies: Coded Allergies: LACTOSE (Verified Allergy, Mild, 06/14/17) AMLODIPINE (Verified Allergy, Unknown, 06/14/17) Objective Last 24 Hour Vital Signs Date Time Temp Pulse Resp B/P (MAP) Pulse Ox O2 Delivery O2 Flow Rate FiO2 06/17/17 07:53 72 18 99 Room Air 21 06/17/17 07:50 21 06/17/17 07:50 72 20 95 Room Air 21 06/17/17 06:00 66 06/17/17 04:00 97.2 66 20 136/70 96 Room Air 66 06/17/17 03:27 Room Air 21 06/17/17 03:27 Room Air 21 06/17/17 00:00 97.0 76 20 147/80 95 Room Air 86 06/16/17 23:29 79 18 96 Room Air 21 06/16/17 23:14 87 20 94 Room Air 21 06/16/17 23:14 21 06/16/17 20:03 75 06/16/17 20:00 97.9 88 22 141/78 95 Room Air 86 06/16/17 18:10 21 06/16/17 18:10 81 21 97 Room Air 21 06/16/17 18:04 90 22 95 Room Air 21 06/16/17 16:00 84 06/16/17 16:00 97.9 86 21 150/78 95 Room Air 86 06/16/17 14:59 97.9 79 21 141/74 94 Room Air 79 06/16/17 14:51 83 22 98 Room Air 21 06/16/17 14:42 21 06/16/17 14:41 87 22 95 Room Air 21 06/16/17 12:00 97.9 79 21 141/74 94 Room Air 79 06/16/17 12:00 79 06/16/17 10:58 21 06/16/17 10:58 79 21 94 Room Air 21 06/16/17 10:51 83 20 94 Room Air 21 Intake and Output 06/16/17 06/17/17 19:00 07:00 Intake Total 240 ml 100 ml Balance 240 ml 100 ml Intake Oral 100 ml Other 240 ml # Voids 2 1 General Appearance: no acute distress HEENT: normocephalic Respiratory/Chest: chest wall non-tender, rhonchi, expiratory wheezing Cardiovascular: normal peripheral pulses, normal rate Microbiology Date/Time Source Procedure Growth Status 06/14/17 19:30 Sputum Gram Stain - Final Resulted 06/14/17 19:30 Sputum Culture - Preliminary Gram Negative Bacillus 1 Resulted Current Medications Medications (Trade) Dose Ordered Sig/Octavia Route PRN Reason Start Time Stop Time Status Last Admin Dose Admin Albuterol/ Ipratropium (Albuterol/ Ipratropium) 3 ml Q4HRT HHN 06/13/17 23:00 06/18/17 22:59 06/17/17 07:51 Dextrose (Dextrose 50%) STAT PRN IV Hypoglycemia 06/13/17 19:15 07/13/17 19:14 Famotidine (Pepcid) 20 mg BID ORAL 06/14/17 18:00 07/14/17 17:59 06/17/17 09:04 Insulin Aspart (NovoLOG) BEFORE MEALS AND HS SUBQ 06/13/17 21:00 07/13/17 20:59 06/16/17 21:34 Insulin Detemir (Levemir) 28 units BEDTIME SUBQ 06/15/17 21:00 07/15/17 20:59 06/16/17 21:35 Methylprednisolone Sodium Succinate (Solu-MEDROL) 40 mg EVERY 8 HOURS IVP 06/13/17 22:00 07/13/17 21:59 06/17/17 06:44 Nicolás Loza MD Jun 17, 2017 09:57
[2017-06-17 12:00] VITALS: BP 143/76
[2017-06-17 16:00] VITALS: BP 128/70
[2017-06-17 20:00] VITALS: BP 129/75
[2017-06-17] MEDS: Levemir Flexpen SUBQ SCH (20:56)
[2017-06-18] VITALS: BP 135/60
[2017-06-18 04:00] VITALS: BP 140/70
[2017-06-18] MEDS: Albuterol/Ipratropium 3ml neb HHN SCH ×4 (04:20→15:02)
[2017-06-18] MEDS: NovoLOG Insulin Flexpen SUBQ SCH ×3 (06:30→16:31)
[2017-06-18 08:00] VITALS: BP 127/67
--- NOTE | 2017-06-18 09:57 | Pulmonology Progress Note ---
Assessment/Plan Assessment/Plan IMPRESSION: 1. Acute respiratory failure. ABG better 2. Possible pneumonia. Sputum CS has gram neg bacilli 3. 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 4. Hypertension with hypertensive heart disease. PLAN: OK to dc home PO Levaquin and steroid taper Subjective Interval Events: Feeling much better Constitutional: Reports: no symptoms HEENT: Repors: no symptoms Respiratory: Reports: shortness of breath, dyspnea on exertion, wheezing Cardiovascular: Reports: no symptoms Gastrointestinal/Abdominal: Reports: no symptoms Genitourinary: Reports: no symptoms Allergies: Coded Allergies: LACTOSE (Verified Allergy, Mild, 06/14/17) AMLODIPINE (Verified Allergy, Unknown, 06/14/17) Objective Last 24 Hour Vital Signs Date Time Temp Pulse Resp B/P (MAP) Pulse Ox O2 Delivery O2 Flow Rate FiO2 06/18/17 08:00 119 06/18/17 08:00 97.4 115 20 127/67 99 Room Air 06/18/17 07:35 96 20 96 Room Air 21 06/18/17 07:26 93 20 94 Room Air 21 06/18/17 04:00 97.3 77 20 140/70 98 Room Air 86 06/18/17 04:00 77 06/18/17 03:18 82 18 98 Room Air 21 06/18/17 03:12 36 06/18/17 03:12 91 20 96 Room Air 21 06/18/17 00:00 91 06/18/17 00:00 97.9 86 20 135/60 98 Room Air 86 06/17/17 23:15 86 18 99 Room Air 21 06/17/17 23:06 86 18 95 Room Air 21 06/17/17 23:06 36 06/17/17 20:00 97.5 81 20 129/75 98 Room Air 81 06/17/17 20:00 81 06/17/17 19:25 82 16 98 Room Air 21 06/17/17 19:10 81 20 94 Room Air 21 06/17/17 19:10 36 06/17/17 16:00 87 06/17/17 16:00 98.2 87 19 128/70 98 Room Air 87 06/17/17 14:55 21 06/17/17 14:55 84 18 98 Room Air 21 06/17/17 14:54 85 18 96 Room Air 21 06/17/17 12:00 90 06/17/17 12:00 97.5 89 19 143/76 95 Room Air 89 06/17/17 11:00 74 18 99 Room Air 21 06/17/17 10:55 77 20 93 Room Air 21 06/17/17 10:55 21 Intake and Output 06/17/17 06/18/17 19:00 07:00 Intake Total 680 ml 240 ml Output Total 600 ml Balance 80 ml 240 ml Intake Oral 440 ml 240 ml Other 240 ml Output Urine Total 600 ml # Voids 4 3 # Bowel Movements 1 General Appearance: no acute distress HEENT: normocephalic Respiratory/Chest: chest wall non-tender, decreased breath sounds, rhonchi Cardiovascular: normal rate, regular rhythm Abdomen: normal bowel sounds, soft, non tender Current Medications Medications (Trade) Dose Ordered Sig/Octavia Route PRN Reason Start Time Stop Time Status Last Admin Dose Admin Albuterol/ Ipratropium (Albuterol/ Ipratropium) 3 ml Q4HRT HHN 06/13/17 23:00 06/18/17 22:59 06/18/17 07:25 Dextrose (Dextrose 50%) STAT PRN IV Hypoglycemia 06/13/17 19:15 07/13/17 19:14 Famotidine (Pepcid) 20 mg BID ORAL 06/14/17 18:00 07/14/17 17:59 06/18/17 08:37 Insulin Aspart (NovoLOG) BEFORE MEALS AND HS SUBQ 06/13/17 21:00 07/13/17 20:59 06/17/17 17:17 Insulin Detemir (Levemir) 28 units BEDTIME SUBQ 06/15/17 21:00 07/15/17 20:59 06/17/17 20:56 Levofloxacin (Levaquin) 750 mg DAILY ORAL 06/17/17 12:00 06/24/17 11:59 06/18/17 08:37 Prednisone (predniSONE) 20 mg DAILY ORAL 06/18/17 09:00 07/18/17 08:59 06/18/17 08:37 Nicolás Loza MD Jun 18, 2017 09:57
[2017-06-18 12:00] VITALS: BP 137/80
[2017-06-18 16:00] VITALS: BP 128/69
[2017-06-18] MEDS ORDERED: LEVAQUIN250 M1 ORAL (18:00)
[2017-06-18] MEDS ORDERED: NOVOLOG100 UNITS1 SUBQ (18:00)
[2017-06-18] MEDS ORDERED: FAMOTIDINE20 MG ORAL (18:00)
--- NOTE | 2017-06-19 16:03 | Discharge Summary ---
DATE OF ADMISSION: 06/13/2017 DATE OF DISCHARGE: 06/18/2017 PERTINENT HISTORY: The patient is a 71-year-old man with chronic lung disease and recurrent hospitalizations. He has a history of prior tuberculosis, bronchiectasis, and pulmonary fibrosis. He presents with increasing cough and shortness of breath. PERTINENT PHYSICAL FINDINGS: See the dictated History and Physical. HEAD, EYES, EARS, NOSE, AND THROAT: Unremarkable. LUNGS: Showed bilateral rhonchi and wheezing and a harsh cough. HEART: Regular rhythm. No murmur. ABDOMEN: Soft without organomegaly. EXTREMITIES: No edema. COURSE IN THE HOSPITAL: The patient's rapid influenza screen was negative. Imaging showed extensive fibrotic and chronic disease. He had a sodium of 124 on admission and a glucose of 221 and white count of 22.5. The patient was given steroids and nebulizer treatment. His thiazide diuretic was discontinued. He had elevation of glucose and was started on insulin sliding scale on Levemir. Subsequently, his steroids were tapered and the patient continues to improve. He has had chronic wheezing and on the day of discharge, he had mild wheezing, but no distress. Heart, regular rhythm. Abdomen is soft. Extremities, no edema. He was discharged home in stable condition. FINAL DIAGNOSES: 1. Chronic obstructive pulmonary disease with acute exacerbation of chronic obstructive pulmonary disease and asthma. 2. Pulmonary fibrosis. 3. Hyponatremia due to thiazide diuretics. 4. Hypertension. 5. Diabetes with hyperglycemia, exacerbated by steroids. 6. History of remote treatment for tuberculosis. DISCHARGE DISPOSITION: He is discharged home. No concentrated sweets diet. MEDICATIONS: Per the discharge medication list, which include prednisone 20 mg daily for 10 days, then 10 mg daily. FOLLOWUP: He is to follow up with his prior physician, Dr. Byron Curry at [facility]. Wyatt Santiago M.D. DR: NATI JOB#: [id number] CC:
--- NOTE | 2017-06-22 16:08 | Cardiology Report ---
APPROVED REPORT EKG Measurement Heart [id number] Sinus tachycardia Right bundle branch block Possible Inferior infarct, age undetermined Abnormal ECG
== END 2017-06-18 18:35 | disposition home or self-care (01) | DRG 196 ==
LOC: EDBD 13:35 → EMR 17:04 → 2W 18:24 → EDBEDREQ 18:50 → ENRESERV 21:19 → EDBEDREQ 21:25 → 2W 06-14 13:06
DX: J84.10 Pulmonary fibrosis, unspecified (principal); J96.01 Acute respiratory failure with hypoxia; J44.1 Chronic obstructive pulmonary disease with (acute) exacerbation; E87.1 Hypo-osmolality and hyponatremia; J45.901 Unspecified asthma with (acute) exacerbation; I45.10 Unspecified right bundle-branch block; I11.9 Hypertensive heart disease without heart failure; E11.9 Type 2 diabetes mellitus without complications; Z86.11 Personal history of tuberculosis
CPT/HCPCS: 36415; 36600; 71045; 71250; 80048; 80053; 81003; 82248; 82803; 82962; 83605; 83880; 84439; 84443; 84484; 85007; 85025; 86710; 87040; 87070; 87181; 87205; 93005; 94640; 94664; J1815; J7620; S5561